=== PATIENT | male | born 1930 | race Caucasian/White ===

== ENCOUNTER 2016-11-07 15:53 | Outpatient (CLI) | payer MEDICARE, BC ==
--- NOTE | 2016-11-07 17:30 | RAD ---
PA AND LATERAL VIEWS CHEST 11/07/16 HISTORY: Preoperative evaluation. FINDINGS: The heart size is normal. The aorta is tortuous. The lungs are expanded without focal areas of conso lidation, pneumothoraces or pleural effusions. There are degenerative changes in the spine. IMPRESSION: No radiographic evidence of acute cardiopulmonary process. POS: [facility]US
--- NOTE | 2016-11-08 09:38 | EKG ---
Test Reason : Blood Pressure : / mmHG Vent. Rate : 072 BPM Atrial Rate : 072 BPM P-R Int : 172 ms QRS Dur : 082 ms QT Int : 378 ms P-R-T Axes : 011 -16 012 degrees QTc Int : 413 ms Normal sinus rhythm Minimal voltage criteria for LVH, may be normal variant Borderline ECG Confirmed by KIRTI GRADY ([id number]) on 11/08/2016 9:37:54 AM Referred By: AMINATA Confirmed By:KIRTI GRADY
== END 2016-11-07 15:54 | disposition home or self-care (01) ==
LOC: LABBT 15:53
PROVIDERS: ATTEND Orthopaedic Surgery Hand Surgery
DX: Z01.818 Encounter for other preprocedural examination (principal)
CPT/HCPCS: 71020; 93005; 93010

== ENCOUNTER 2019-04-08 10:55 | Emergency (ER) | payer MEDICARE, BC ==
[2019-04-08] MEDS ORDERED: Bacitracin 1 PK ONE (11:21)
== END 2019-04-08 11:50 | disposition home or self-care (01) ==
LOC: ERS 10:55
DX: I86.1 Scrotal varices (principal)
CPT/HCPCS: 99283